=== PATIENT | male | born 1940 | race Asian ===

== ENCOUNTER 2019-04-25 08:05 | Day surgery (SDC) | payer MEDICARE ==
[~2019-04-25] VITALS: Ht 162.6 cm; Wt 63.6 kg
[2019-04-25 09:30] VITALS: BP 174/90
[2019-04-25] MEDS ORDERED: SODIUM CHLORIDE 0.45% 1,000 ML IV SCH (09:30)
[2019-04-25] MEDS ORDERED: LISI5TAB7 PO (09:38)
[2019-04-25] MEDS ORDERED: ASPI81TA45 PO (09:38)
[2019-04-25] MEDS ORDERED: GABA-826 PO (09:38)
[2019-04-25] MEDS ORDERED: ATOR40TA78 PO (09:38)
[2019-04-25] MEDS ORDERED: FURO20TA3 PO (09:38)
[2019-04-25] MEDS ORDERED: PLEASE ENTER HEIGHT AND WEIGHT MC SCH (10:00)
[2019-04-25] MEDS ORDERED: PLEASE ENTER ALLERGIES MC SCH (10:00)
[2019-04-25] MEDS ORDERED: MIDAZOLAM 1 MG/ML, 5ML ONE (10:52)
[2019-04-25] MEDS ORDERED: FENTANYL PF 100 MCG/2ML ONE (10:52)
[2019-04-25] MEDS ORDERED: VERAPAMIL 2.5 MG/ML, 2ML ONE (10:52)
[2019-04-25] MEDS ORDERED: BIVALIRUDIN 250 MG ONE (10:53)
[2019-04-25] MEDS ORDERED: LIDOCAINE-MPF 1%, 5ML ONE (10:53)
[2019-04-25] MEDS ORDERED: HEPARIN 1,000 UNITS/ML, 10ML ONE (10:53)
[2019-04-25] MEDS ORDERED: NITROGLYCERIN 5 MG/ML, 10ML ONE (10:54)
== END 2019-04-25 15:45 | disposition home or self-care (01) ==
LOC: CACL 08:05
PROVIDERS: ATTEND Internal Medicine Cardiovascular Disease
DX: I50.21 Acute systolic (congestive) heart failure (principal); I11.0 Hypertensive heart disease with heart failure; I25.10 Atherosclerotic heart disease of native coronary artery without angina pectoris; I44.0 Atrioventricular block, first degree; I42.9 Cardiomyopathy, unspecified; E11.9 Type 2 diabetes mellitus without complications; E78.5 Hyperlipidemia, unspecified; Z79.899 Other long term (current) drug therapy
CPT/HCPCS: 93460; 99156; 99157; C1894; J1644; J2250; J3010; Q9967; J0583